=== PATIENT | female | born 1960 | race Caucasian/White ===

== ENCOUNTER 2018-06-25 09:09 | Outpatient (CLI) | payer BC | END 2018-06-25 09:10 | disposition home or self-care (01) | LOC: BICULT 09:09 | PROVIDERS: ATTEND Internal Medicine Gastroenterology | DX: K74.60 Unspecified cirrhosis of liver (principal); R16.1 Splenomegaly, not elsewhere classified; Z90.49 Acquired absence of other specified parts of digestive tract | CPT/HCPCS: 76705 ==

== ENCOUNTER 2019-07-30 08:39 | Outpatient (CLI) | payer BC ==
--- NOTE | 2019-07-30 10:41 | ULT ---
Hepatic Doppler ultrasound: 07/30/2019 COMPARISON: 06/25/2018 HISTORY: Cirrhosis TECHNIQUE: Multiplanar grayscale sonographic imaging of the upper abdomen obtained. Hepatic and splen ic vasculature is assessed with color flow and spectral analysis FINDINGS: Imaged pancreas is grossly unremarkable. The IVC and aorta appear within normal limits. The hepatic parenchyma is heterogeneous and echogenic, with a peripheral nodular configuration, consi stent with the patient's history of cirrhosis, similar when compared to the prior examination. The middle, right, and left hepatic veins are patent. Common bile duct measures 5 mm. The gallbladder is surgically absent. Hepatic artery is patent and demonstrates an appropriate arterial waveform. The spleen measures 14 cm in craniocaudal dimension, enlarged. Splenic artery and splenic vein are pa tent and demonstrate appropriate waveforms. Doppler assessment in the region of the main portal vein demonstrates no discrete blood flow suggesti ng portal vein thrombosis or cavernous transformation of the portal vein, as there are areas of curvilinear vascular patency in the silvia hepatis. The physical trainer was not able to document flow with in the intrahepatic portal system, which could be secondary to thrombosis or technical limitation. IMPRESSION: Cirrhotic configuration of the hepatic parenchyma. Mild splenomegaly suggest portal hyper tension. Blood flow cannot be documented within the main portal vein suggesting thrombosis. There is possible cavernous transformation. Recommend further assessment via CT. ALEXANDRO Lim made aware at 10:38 AM 07/30/2019.
== END 2019-07-30 08:40 | disposition home or self-care (01) ==
LOC: SCSULT 08:39
PROVIDERS: ATTEND Internal Medicine Gastroenterology
DX: K74.60 Unspecified cirrhosis of liver (principal); R16.1 Splenomegaly, not elsewhere classified
CPT/HCPCS: 76705

== ENCOUNTER 2019-07-31 07:41 | Outpatient (CLI) | payer BC ==
--- NOTE | 2019-07-31 09:26 | CT ---
CT the abdomen with and without IV contrast Indication history of cirrhosis and portal vein thrombosis. COMPARISON: Hepatic duplex exam dated 07/30/2019 FINDINGS: There is a cirrhotic morphology to liver. There are numerous splenic varicosities. There is portosystemic shunt from the splenic varicosities into the left gonadal vein. The portal vein is seen to opacify along its mid segment and the proximal aspect of the right and lef t portal vein. There is opacification of hepatic veins. No suspicious focal hepatic lesion is evident. No free fluid enlarged lymph nodes are evident. The pancreas and kidneys are normal appearing. There is mild hypertrophy involving the degenerative glands bilaterally. The spleen measures 12.9 cm in length Visualized small and large bowel appear within normal limits. There is scattered degenerative and osteoarthritic change. There is postsurgical change of a posterio r lateral interbody fusion L4-5 with solid osseous bridging of interbody bone graft. Very slight grade 1 anterolisthesis of L4-L5. IMPRESSION: 1. Cirrhosis of the liver with findings of portal hypertension. 2. The portal vein is seen to opacify without visible intraluminal thrombus.
== END 2019-07-31 07:42 | disposition home or self-care (01) ==
LOC: CT 07:41
PROVIDERS: ATTEND Internal Medicine Gastroenterology
DX: K74.60 Unspecified cirrhosis of liver (principal); R10.13 Epigastric pain; R93.5 Abnormal findings on diagnostic imaging of other abdominal regions, including retroperitoneum; K76.6 Portal hypertension
CPT/HCPCS: 74170; 82565

== ENCOUNTER 2019-09-04 07:17 | Outpatient (CLI) | payer BC ==
--- NOTE | 2019-09-04 12:47 | NM ---
Radionucleotide gastric emptying scan HISTORY: Nausea vomiting. Reflux. Abdomen pain. FINDINGS: Half life gastric emptying is calculated at 42 minutes. Emptying calculations are as follows: (Percent empty). 30 minutes 32% 1 hour 71% 2 hours 98% 3 hours 100% IMPRESSION: Normal exam.
== END 2019-09-04 07:18 | disposition home or self-care (01) ==
LOC: NM 07:17
PROVIDERS: ATTEND Internal Medicine Gastroenterology
DX: R11.0 Nausea (principal); E11.9 Type 2 diabetes mellitus without complications
CPT/HCPCS: 78264; A9541

== ENCOUNTER 2021-03-22 07:00 | Day surgery (SDC) | payer BC ==
[2021-03-20 13:13] VITALS: BMI 34.4
[2021-03-22 07:46] VITALS: BP 138/62; TEMP 98.2
[2021-03-22] MEDS ORDERED: Iopamidol-M 200 41% 20 ML VIAL ONE (13:55)
== END 2021-03-22 09:50 | disposition home or self-care (01) ==
LOC: RAD 07:00
PROVIDERS: ATTEND Surgery
PROC: B02B1ZZ Computerized Tomography (CT Scan) of Spinal Cord using Low Osmolar Contrast (ICD-10-PCS; principal; 2021-03-22)
DX: M54.16 Radiculopathy, lumbar region (principal); M48.061 Spinal stenosis, lumbar region without neurogenic claudication; I70.0 Atherosclerosis of aorta; E27.8 Other specified disorders of adrenal gland; E11.9 Type 2 diabetes mellitus without complications; I10 Essential (primary) hypertension; Z79.84 Long term (current) use of oral hypoglycemic drugs; Z79.899 Other long term (current) drug therapy; Z91.040 Latex allergy status; Z96.0 Presence of urogenital implants; Z98.1 Arthrodesis status
CPT/HCPCS: 62304; 72132; Q9966

== ENCOUNTER 2021-04-10 12:15 | Outpatient (CLI) | payer BC ==
[2021-04-10 14:53] LABS: Mean Corpuscular HGB CONC 33.7 g/dL (32.0-36.0); Mean Corpuscular Volume 91.8 fl (81.6-98.3); Mean Platelet Volume 11.2 fl (7.4-10.4); Platelet Count 126 10x3/uL (150-450); RBC Distribution Width 12.5 % (11.5-14.5); Red Blood Cell (RBC) Count 4.52 10x6/uL (3.90-5.03); White Blood Cell (WBC) Count 5.3 10x3/uL (3.5-10.5)
[2021-04-10 15:12] LABS: Anion Gap 15 mmol/L (10-20); BUN (Urea Nitrogen) 16 mg/dL (9.8-20.1); Calc. Creatinine Clearance 0 mL/min (70-130); Calcium 9.8 mg/dL (7.8-10.44); Carbon Dioxide 22 mmol/L (23-31); Chloride 105 mmol/L (98-107); Glucose 92 mg/dL (80-115); Potassium 4.4 mmol/L (3.5-5.1); Sodium 138 mmol/L (136-145)
[2021-04-10 15:13] LABS: PTT 27.4 sec (22.0-33.0); Prothrombin Time 11.4 sec (9.5-12.1)
== END 2021-04-10 12:16 | disposition home or self-care (01) ==
LOC: LABBT 12:15
PROVIDERS: ATTEND Surgery
DX: Z01.818 Encounter for other preprocedural examination (principal); M48.062 Spinal stenosis, lumbar region with neurogenic claudication; M54.16 Radiculopathy, lumbar region
CPT/HCPCS: 80048; 85027; 85610; 85730; 93005; 93010

== ENCOUNTER 2021-04-13 06:50 | Day surgery (SDC) | payer BC ==
[2021-04-12 09:16] VITALS: BMI 33.0
[2021-04-13] MEDS ORDERED: Fentanyl 100 MCG/2 ML VIAL ONE ×2 (09:22→15:27)
[2021-04-13] MEDS ORDERED: Midazolam HCl 2 mg/2 ml Vial ONE (09:22)
[2021-04-13] MEDS ORDERED: Dexmedetomidine 200 MCG/2 ML VIAL ONE (09:23)
[2021-04-13] MEDS ORDERED: Ketamine 50 MG/ML (10ML VIAL) ONE (09:23)
[2021-04-13] MEDS ORDERED: Morphine 2 MG/ML VIAL SLOW IVP PRN (09:39)
[2021-04-13] MEDS ORDERED: traMADol HCl 50 MG TAB PO PRN (09:39)
[2021-04-13] MEDS ORDERED: Acetaminophen 325 MG TAB PO PRN (09:39)
[2021-04-13] MEDS ORDERED: tiZANidine HCl 4 MG TAB PO PRN (09:39)
[2021-04-13] MEDS ORDERED: Acetaminophen/Codeine 30-300mg Tablet PO PRN (09:39)
[2021-04-13] MEDS ORDERED: PHENYLEPHRINE-NS 100 MCG/ML 10 ML SYRINGE ONE (09:43)
[2021-04-13] MEDS ORDERED: PROPOFOL 200 MG/20 ML VIAL ONE (09:43)
[2021-04-13] MEDS ORDERED: Ketorolac Tromethamine 30 MG/ML VIAL ONE (09:43)
[2021-04-13] MEDS ORDERED: Dexamethasone 20 MG/5 ML VIAL ONE (09:43)
[2021-04-13] MEDS ORDERED: Glycopyrrolate 0.2 MG/ML 5 ML SYRINGE ONE (09:43)
[2021-04-13] MEDS ORDERED: Rocuronium Bromide 10 MG/ML (10ML VIAL) ONE (09:43)
[2021-04-13] MEDS ORDERED: Ondansetron PF 4 MG/2 ML Vial ONE (09:43)
[2021-04-13] MEDS ORDERED: diphenhydrAMINE 50 MG/ML VIAL ONE (09:43)
[2021-04-13] MEDS ORDERED: Thrombin 5000 UNITS/5 ML VIAL ONE (10:05)
[2021-04-13] MEDS ORDERED: Phenylephrine 10 MG/ML VIAL ONE (10:57)
[2021-04-13] MEDS ORDERED: Ondansetron HCl/PF 4 MG/2 ML Vial IVP PRN (12:16)
[2021-04-13] MEDS ORDERED: Promethazine HCl 25 MG/ML VIAL IM PRN (12:16)
[2021-04-13] MEDS: HYDROcodone/Acetaminophen 7.5/325 mg Tablet PO PRN ×2 (16:43→22:57)
[2021-04-13] MEDS: CEFAZOLIN 2 GM in Premix Bag 1 BAG IVPB SCH ×2 (16:43→22:58)
[2021-04-13] MEDS: Sodium Chloride 0.9% 1,000 ML IV SCH (16:45)
[2021-04-13] MEDS ORDERED: metFORMIN 500 MG TAB PO SCH (17:00)
[2021-04-13] MEDS: PATIENT'S HOME MEDICATION PO SCH ×3 (20:58→21:03)
[2021-04-13] MEDS ORDERED: FLUoxetine HCl 20 MG CAP PO SCH (21:00)
[2021-04-13] MEDS ORDERED: traZODone HCl 50 MG TAB PO SCH (21:00)
[2021-04-13] MEDS ORDERED: PRAVASTATIN 10 MG PO SCH (21:00)
[2021-04-13] MEDS ORDERED: CHLORPHENIRAMINE MALEATE 4 MG PO SCH (21:00)
[2021-04-13] MEDS ORDERED: ATENOLOL PO SCH (21:00)
[2021-04-13] MEDS ORDERED: Simvastatin 5 MG TAB PO SCH (21:00)
[2021-04-13] MEDS ORDERED: PATIENT'S HOME MEDICATION PO SCH ×2 (21:00)
[2021-04-13] MEDS ORDERED: Atenolol 50 MG TAB PO SCH (21:00)
[2021-04-13] MEDS ORDERED: Rifaximin 550 MG TAB PO SCH (21:00)
[2021-04-13] MEDS: CHLORPHENIRAMINE MALEATE 4 MG PO SCH (21:01)
[2021-04-14] MEDS: Sodium Chloride 0.9% 1,000 ML IV SCH ×2 (03:45→11:33)
[2021-04-14] MEDS ORDERED: PATIENT'S HOME MEDICATION PO SCH ×5 (07:30→09:00)
[2021-04-14] MEDS ORDERED: glipiZIDE 10 MG TAB PO SCH (07:30)
[2021-04-14] MEDS: PATIENT'S HOME MEDICATION PO SCH ×3 (08:14→08:17)
[2021-04-14] MEDS: CHLORPHENIRAMINE MALEATE 4 MG PO SCH (08:17)
[2021-04-14 08:23] VITALS: TEMP 98.2
[2021-04-14] MEDS ORDERED: Empagliflozin 25 MG TAB PO SCH (09:00)
[2021-04-14] MEDS ORDERED: Liraglutide [Victoza 3-Pak] 0.6 MG/0.1 ML Pen.Injctr SC SCH ×2 (09:00)
[2021-04-14 11:08] VITALS: BP 104/47
== END 2021-04-14 11:35 | disposition home or self-care (01) ==
LOC: SDC 06:50 → SURG B 09:39 → SDC 04-14 11:35
PROVIDERS: ATTEND Surgery
PROC: 0SB20ZZ Excision of Lumbar Vertebral Disc, Open Approach (ICD-10-PCS; principal; 2021-04-13)
PROC: 01NB0ZZ Release Lumbar Nerve, Open Approach (ICD-10-PCS; principal; 2021-04-13)
DX: M48.062 Spinal stenosis, lumbar region with neurogenic claudication (principal); M51.16 Intervertebral disc disorders with radiculopathy, lumbar region; Z79.84 Long term (current) use of oral hypoglycemic drugs; Z79.899 Other long term (current) drug therapy; Z91.040 Latex allergy status; Z98.1 Arthrodesis status
CPT/HCPCS: 76000; J0690; J1100; J1200; J1885; J2250; J2370; J2405; J2704; J3010; J3370